=== PATIENT | male | born 1930 | race African-American/Black ===

== ENCOUNTER 2020-03-08 16:48 | Emergency (ER) | payer OTHER ==
[2020-03-08] MEDS ORDERED: ONDANSETRON 4 MG/2 ML VIAL ONE (18:39)
--- NOTE | 2020-03-08 18:41 | RAD REPORT ---
EXAM DESCRIPTION: RAD - Chest Single View - 03/08/2020 6:25 pm CLINICAL HISTORY: epigastric pain Chest pain. COMPARISON: CHEST SINGLE VIEW dated 04/15/2008 FINDINGS: Portable technique limits examination quality. The lungs are grossly clear. The heart is moderately enlarged with a tortuous thoracic aorta. No disp laced fractures. IMPRESSION: No acute intrathoracic process suspected.
[2020-03-08 18:51] LABS: Absolute Lymphocytes (CBC) 0.5 K/uL (0.7-4.9); Basophils % 0.2 % (0-1.3); Hematocrit 37.9 % (39.6-49.0); Lymphocytes % 5.6 % (15.3-44.8); MPV 8.7 fL (7.6-11.3); RBC Red Blood Cell Count 4.46 M/uL (4.33-5.43)
--- NOTE | 2020-03-08 19:21 | RAD REPORT ---
EXAM DESCRIPTION: CTAbdomen Pelvis W Contrast - 03/08/2020 6:46 pm CLINICAL HISTORY: Abdominal pain. Abd pain;Nausea / vomiting COMPARISON: No comparisons TECHNIQUE: Biphasic CT imaging of the abdomen and pelvis was performed with 100 ml non-ionic IV cont rast. All CT scans are performed using dose optimization technique as appropriate and may include automated exposure control or mA/KV adjustment according to patient size. FINDINGS: Linear subsegmental atelectasis is present in right lung base. Numerous liver cysts are present. No aggressive liver lesion or biliary dilatation. Nodularity is see n in both adrenal glands, likely benign. Bilateral renal cysts are present with small stones in the c alices of both kidneys, the largest measuring 5 mm in the superior pole right kidney. The pancreas is unremarkable. No bowel obstruction, free air, free fluid or abscess. The appendix is normal. No evidence of signi ficant lymphadenopathy. Significant lumbosacral degenerative changes. Bilateral total hip arthroplasties. IMPRESSION: No acute intra-abdominal or pelvic finding. Nonobstructing bilateral nephrolithiasis.
[2020-03-08 19:26] LABS: ALT/SGPT 28 U/L (12-78); Alkaline Phosphatase 91 U/L (45-117); BUN Blood Urea Nitrogen 17 mg/dL (7-18); Bicarbonate 26 mmol/L (21-32); Bilirubin Direct < 0.1 mg/dL (0-0.2); Bilirubin Total 0.4 mg/dL (0.2-1.0); Glucose Level 117 mg/dL (74-106); Lipase 105 U/L (73-393); Protein, Total 9.9 g/dL (6.4-8.2); Sodium Level 138 mmol/L (136-145); Troponin I < 0.02 ng/mL (0.0-0.045)
[2020-03-08 19:27] LABS: AST/SGOT 26 U/L (15-37); Magnesium 2.3 mg/dL (1.8-2.4); Potassium 4.4 mmol/L (3.5-5.1)
[2020-03-08] MEDS ORDERED: DICYCLOMINE HCL 10 MG CAP ONE (20:28)
--- NOTE | 2020-03-08 20:37 | EDPHYS ---
Physician Documentation [facility] Name: Milagros Bolanos Jr Age: 89 yrs Sex: Male : 1930 Arrival Date: 03/08/2020 Time: 16:52 Bed 16 Private MD: ED Physician Cosme Chamorro HPI: 03/08 18:05 This 89 yrs old Black Male presents to ER via Wheelchair with complaints of Abdominal cp Pain, Vomiting, Weakness. 18:05 The patient presents with abdominal pain in the epigastric area, in the upper abdomen. cp Onset: The symptoms/episode began/occurred this morning. Associated signs and symptoms: Pertinent positives: nausea and vomiting, Pertinent negatives: blood in stools, chest pain, vomiting blood. The symptoms are described as constant. Historical: - Allergies: 16:56 No Known Allergies; jd3 - PMHx: 16:56 Hypertension; UTI; High Cholesterol; jd3 - PSHx: 16:56 SHYAM hip; jd3 - Immunization history:: Adult Immunizations unknown. - Social history:: Smoking status: Patient/guardian denies using tobacco, the patient reports quitting approximately 2 years ago. ROS: 18:10 Constitutional: Negative for body aches, chills, fever, poor PO intake. cp 18:10 Eyes: Negative for injury, pain, redness, and discharge. cp 18:10 ENT: Negative for ear pain, sore throat, difficulty swallowing, difficulty handling secretions. 18:10 Cardiovascular: Negative for chest pain, edema, palpitations. 18:10 Respiratory: Negative for cough, shortness of breath, wheezing. 18:10 Abdomen/GI: Positive for abdominal pain, nausea and vomiting, Negative for diarrhea, constipation, hematemesis, black/tarry stool, rectal bleeding. 18:10 Back: Negative for radiated pain. 18:10 : Negative for urinary symptoms, testicular pain 18:10 Neuro: Negative for altered mental status, headache. 18:10 All other systems are negative. Exam: 18:15 Constitutional: The patient appears in no acute distress, alert, awake, cp non-diaphoretic, non-toxic, well developed, well nourished. 18:15 Head/Face: Normocephalic, atraumatic. cp 18:15 Eyes: Periorbital structures: appear normal, Conjunctiva: normal, no exudate, no injection, Sclera: no appreciated abnormality, Lids and lashes: appear normal, bilaterally. 18:15 ENT: External ear(s): are unremarkable, Nose: is normal, Mouth: Lips: moist, Oral mucosa: pink and intact, moist, Posterior pharynx: is normal, airway is patent, no erythema, no exudate. 18:15 Chest/axilla: Inspection: normal, Palpation: is normal, no crepitus, no tenderness. 18:15 Cardiovascular: Rate: normal, Rhythm: regular, Edema: is not appreciated, JVD: is not appreciated. 18:15 Respiratory: the patient does not display signs of respiratory distress, Respirations: normal, no use of accessory muscles, no retractions, labored breathing, is not present, Breath sounds: are clear throughout, no decreased breath sounds. 18:15 Abdomen/GI: Inspection: abdomen appears normal, Bowel sounds: active, all quadrants, Palpation: soft, in all quadrants, moderate abdominal tenderness, in the right upper quadrant and left upper quadrant, rebound tenderness, is not appreciated, voluntary guarding, is elicited in the right upper quadrant and left upper quadrant, involuntary guarding, is not appreciated. 18:15 Back: pain, is absent, ROM is normal. 18:15 Neuro: Orientation: to person, place \T\ time. Mentation: is normal, Motor: moves all fours, strength is normal. 19:05 ECG was reviewed by the Attending Physician. cp Vital Signs: 16:56 BP 153 / 87; Pulse 88; Resp 17 S; Temp 98.2(O); Pulse Ox 99% on R/A; Weight 72.57 kg jd3 (R); Height 5 ft. 8 in. (172.72 cm) (R); Pain 8/10; 18:10 BP 166 / 91; Pulse 92; Resp 16 S; Pulse Ox 98% on R/A; ca1 19:00 BP 149 / 89; Pulse 86; Resp 17 S; Pulse Ox 98% on R/A; ca1 20:09 BP 155 / 91; Pulse 87; Resp 18 S; Pulse Ox 97% on R/A; ca1 20:57 BP 158 / 91; Pulse 91; Resp 16 S; Pulse Ox 98% on R/A; ca1 16:56 Body Mass Index 24.33 (72.57 kg, 172.72 cm) jd3 MDM: 18:05 Patient medically screened. cp 18:06 Patient medically screened. izzy 20:35 Data reviewed: vital signs, nurses notes, lab test result(s), radiologic studies, CT cp scan, plain films. 20:35 Test interpretation: by ED physician or midlevel provider: ECG. Counseling: I had a cp detailed discussion with the patient and/or guardian regarding: the historical points, exam findings, and any diagnostic results supporting the discharge/admit diagnosis, lab results, radiology results, to return to the emergency department if symptoms worsen or persist or if there are any questions or concerns that arise at home. Response to treatment: the patient's symptoms have markedly improved after treatment. Special discussion: Based on the patient's Hx, exam, and Dx evaluation, there is no indication for emergent surgery or inpatient Tx. It is understood by the patient/guardian that if the Sx's persist or worsen they need to return immediately for re-evaluation. ED course: VSS. Pain and nausea improved. Vomiting resolved and patient tolerating po fluids. Will discharge to home for continued monitoring. 03/08 18:08 Order name: Basic Metabolic Panel; Complete Time: 19:59 03/08 20:05 Interpretation: Normal except: GLUC 117; GFR 64; CA 10.2. 03/08 18:08 Order name: CBC with Diff; Complete Time: 13:18 03/08 19:24 Interpretation: Normal except: HGB 12.3; HCT 37.9; RDW 16.1; JAYLENE% 91.1; LYM% 5.6; MN% cp 3.1; LYMA 0.5. 03/08 18:08 Order name: Hepatic Function; Complete Time: 19:59 03/08 20:05 Interpretation: Normal except: TP 9.9; GLOB 5.9; A/G 0.7. 03/08 18:08 Order name: Lipase; Complete Time: 19:59 03/08 18:08 Order name: Magnesium; Complete Time: 19:59 03/08 18:08 Order name: Lactate; Complete Time: 19:59 03/08 20:06 Interpretation: Within normal limits. 03/08 18:08 Order name: Troponin I; Complete Time: 19:59 03/08 20:06 Interpretation: TROP < 0.02; Reviewed. 03/08 18:08 Order name: PT-INR; Complete Time: 19:59 cp 03/08 18:08 Order name: CT Abd/Pelvis - IV Contrast Only; Complete Time: 19:23 cp 03/08 19:24 Interpretation: Report reviewed. 03/08 18:08 Order name: XRAY Chest (1 view); Complete Time: 19:23 03/08 19:24 Interpretation: Report reviewed. 03/08 19:02 Order name: CBC Smear Scan; Complete Time: 13:18 EDMS 03/08 19:23 Order name: COVID-19 cp 03/08 19:23 Order name: CORONAVIRUS; Complete Time: 13:18 EDMS 03/08 20:57 Order name: Urine Dipstick--Ancillary (enter results); Complete Time: 13:18 tt3 03/08 18:08 Order name: IV Saline Lock; Complete Time: 18:38 cp 03/08 18:08 Order name: Labs collected and sent; Complete Time: 18:38 03/08 18:08 Order name: EKG; Complete Time: 18:09 cp 03/08 18:08 Order name: EKG - Nurse/Tech; Complete Time: 19:03 cp 03/08 20:06 Order name: PO challenge; Complete Time: 20:17 cp 03/08 20:52 Order name: Urine Dipstick-Ancillary (obtain specimen); Complete Time: 20:57 cp EC:05 Rate is 88 beats/min. Rhythm is regular. ME interval is prolonged at 278 msec. QRS cp interval is normal. QT interval is normal. Interpreted by me. Reviewed by me. Administered Medications: 19:02 Drug: Zofran (Ondansetron) 4 mg Route: IVP; Site: left antecubital; ca1 20:00 Follow up: Response: No adverse reaction; Nausea is decreased ca1 20:17 Drug: Bentyl 20 mg Route: PO; ca1 20:57 Follow up: Response: No adverse reaction; Pain is decreased ca1 21:00 Follow up: Response: No adverse reaction; Pain is decreased ca1 Disposition: 03/09 08:18 Co-signature as Attending Physician, Cosme Chamorro MD I agree with the assessment and izzy plan of care. Disposition: 03/08/20 20:36 Discharged to Home. Impression: Nausea and vomiting. - Condition is Stable. - Discharge Instructions: Abdominal Pain, Adult, Nausea and Vomiting, Adult. - Prescriptions for Bentyl 20 mg Oral Tablet - take 1 tablet by ORAL route every 6 hours As needed; 20 tablet. Zofran 4 mg Oral Tablet - take 1 tablet by ORAL route every 12 hours As needed; 20 tablet. - Medication Reconciliation Form, Thank You Letter, Antibiotic Education, Prescription Opioid Use form. - Follow up: Private Physician; When: 2 - 3 days; Reason: Recheck today's complaints. - Problem is new. - Symptoms have improved. Signatures: Dispatcher [employer] EDMO Cosme Chamorro MD MD cha Attema, Lee, SHEETFED PRESS OPERATOR-C SHEETFED PRESS OPERATOR-Cla1 Cosme Kellogg, PA PA Munir Cabello RN RN jd3 Ariana Zapata RN RN ca1 Corrections: (The following items were deleted from the chart) 03/08 20:05 20:04 Normal except: GLUC 117; GFR 64. cp cp 20:58 20:36 03/08/2020 20:36 Discharged to Home. Impression: Nausea and vomiting. Condition ca1 is Stable. Forms are Medication Reconciliation Form, Thank You Letter, Antibiotic Education, Prescription Opioid Use. Follow up: Private Physician; When: 2 - 3 days; Reason: Recheck today's complaints. Problem is new. Symptoms have improved. cp
--- NOTE | 2020-03-08 20:37 | ER ---
Nurse's Notes [facility] Name: Milagros Bolanos Jr Age: 89 yrs Sex: Male : 1930 Arrival Date: 03/08/2020 Time: 16:52 Bed 16 Private MD: Diagnosis: Nausea and vomiting Presentation: 03/08 16:54 Chief complaint: Spouse and/or significant other states: "He has been throwing up jd3 consistently for 2 hours now.". Coronavirus screen: At this time, the client does not indicate any symptoms associated with coronavirus-19. Ebola Screen: Patient negative for fever greater than or equal to 101.5 degrees Fahrenheit, and additional compatible Ebola Virus Disease symptoms. Initial Sepsis Screen: Does the patient meet any 2 criteria? No. Patient's initial sepsis screen is negative. Does the patient have a suspected source of infection? No. Patient's initial sepsis screen is negative. Risk Assessment: Do you want to hurt yourself or someone else? Patient reports no desire to harm self or others. Onset of symptoms was March 08, 2020. 16:54 Method Of Arrival: Wheelchair jd3 16:54 Acuity: JOI 3 jd3 Historical: - Allergies: 16:56 No Known Allergies; jd3 - PMHx: 16:56 Hypertension; UTI; High Cholesterol; jd3 - PSHx: 16:56 SHYAM hip; jd3 - Immunization history:: Adult Immunizations unknown. - Social history:: Smoking status: Patient/guardian denies using tobacco, the patient reports quitting approximately 2 years ago. Screenin:05 Abuse screen: Denies threats or abuse. Denies injuries from another. Nutritional ca1 screening: No deficits noted. Tuberculosis screening: No symptoms or risk factors identified. Fall Risk IV access (20 points). Assessment: 18:05 General: Appears in no apparent distress. comfortable, Behavior is calm, cooperative, ca1 appropriate for age. Pain: Complains of pain in epigastric area Pain currently is 7 out of 10 on a pain scale. Pain began 1 day ago. Neuro: Level of Consciousness is awake, alert, obeys commands, Oriented to person, place, time, situation. Cardiovascular: Heart tones S1 S2 present Capillary refill < 3 seconds Patient's skin is warm and dry. Respiratory: Airway is patent Respiratory effort is even, unlabored, Respiratory pattern is regular, symmetrical, Breath sounds are clear bilaterally. GI: Abdomen is flat, non-distended, Bowel sounds present X 4 quads. Abd is soft X 4 quads Abdomen is tender to palpation in epigastric area Reports nausea, vomiting, since last night. : No signs and/or symptoms were reported regarding the genitourinary system. EENT: No signs and/or symptoms were reported regarding the EENT system. Derm: Skin is intact, is healthy with good turgor, Skin is pink, warm \\T\\ dry. Musculoskeletal: Circulation, motion, and sensation intact. Capillary refill < 3 seconds. 19:12 Reassessment: Patient appears in no apparent distress at this time. Patient and/or ca1 family updated on plan of care and expected duration. Pain level reassessed. Patient is alert, oriented x 3, equal unlabored respirations, skin warm/dry/pink. 20:04 Reassessment: Patient appears in no apparent distress at this time. Patient and/or ca1 family updated on plan of care and expected duration. Pain level reassessed. Patient is alert, oriented x 3, equal unlabored respirations, skin warm/dry/pink. 20:57 Reassessment: Patient appears in no apparent distress at this time. Patient is alert, ca1 oriented x 3, equal unlabored respirations, skin warm/dry/pink. Vital Signs: 16:56 BP 153 / 87; Pulse 88; Resp 17 S; Temp 98.2(O); Pulse Ox 99% on R/A; Weight 72.57 kg jd3 (R); Height 5 ft. 8 in. (172.72 cm) (R); Pain 8/10; 18:10 BP 166 / 91; Pulse 92; Resp 16 S; Pulse Ox 98% on R/A; ca1 19:00 BP 149 / 89; Pulse 86; Resp 17 S; Pulse Ox 98% on R/A; ca1 20:09 BP 155 / 91; Pulse 87; Resp 18 S; Pulse Ox 97% on R/A; ca1 20:57 BP 158 / 91; Pulse 91; Resp 16 S; Pulse Ox 98% on R/A; ca1 16:56 Body Mass Index 24.33 (72.57 kg, 172.72 cm) jd3 ED Course: 16:52 Patient arrived in ED. as 16:55 Triage completed. jd3 16:58 Arm band placed on. jd3 18:00 Cosme Kellogg PA is PHCP. cp 18:00 Cosme Chamorro MD is Attending Physician. cp 18:04 Ariana Zapata RN is Primary Nurse. ca1 18:05 Patient has correct armband on for positive identification. Placed in gown. Bed in low ca1 position. Call light in reach. Side rails up X2. Pulse ox on. NIBP on. Warm blanket given. 18:26 XRAY Chest (1 view) In Process Unspecified. EDMS 18:38 Inserted saline lock: 20 gauge in left antecubital area, using aseptic technique. Blood dh4 collected. 18:48 CT Abd/Pelvis - IV Contrast Only In Process Unspecified. EDMS 19:27 Triston Matthews MD is Attending Physician. cp 19:28 Cosme Chamorro MD is Attending Physician. cp 20:58 No provider procedures requiring assistance completed. IV discontinued, intact, ca1 bleeding controlled, No redness/swelling at site. Pressure dressing applied. Administered Medications: 19:02 Drug: Zofran (Ondansetron) 4 mg Route: IVP; Site: left antecubital; ca1 20:00 Follow up: Response: No adverse reaction; Nausea is decreased ca1 20:17 Drug: Bentyl 20 mg Route: PO; ca1 20:57 Follow up: Response: No adverse reaction; Pain is decreased ca1 21:00 Follow up: Response: No adverse reaction; Pain is decreased ca1 Outcome: 20:36 Discharge ordered by MD. cp 20:58 Discharged to home ambulatory, with family. ca1 20:58 Condition: stable 20:58 Discharge instructions given to patient, family, Instructed on discharge instructions, follow up and referral plans. medication usage, Demonstrated understanding of instructions, follow-up care, medications, Prescriptions given X 2. 20:58 Patient left the ED. ca1 Addendum: 03/11/2020 08:31 Addendum: COVID-19 Result: Negative result given to RN to notify pt. Notified pt of s s negative COVID 19 swab results. Pt advised that even with a negative test result they should remain in isolation until symptom free for 3 days without medication. Pt also advised to return to the ED for worsening symptoms. Signatures: Dispatcher [employer] Celina Garza Shelby, RN RN ss Cosme Kellogg PA PA cp Davies, Jonathon, RN RN jd3 AcAriana pham RN RN ca1 Stefano Rodriguez 4 Corrections: (The following items were deleted from the chart) 03/08 19:11 18:05 GI: Abdomen is flat, non-distended, Bowel sounds present X 4 quads. Abd is soft ca1 and non tender X 4 quads. ca1
[2020-03-08 20:54] LABS: Blood Morphology Comment NOT SEEN (NOT SEEN); Platelet Estimate ADEQ; White Blood Cell Scan OK (OK)
[2020-03-08 21:08] LABS: Urine Blood TRACE (NEG); Urine Glucose NEGATIVE (NEG); Urine Protein NEGATIVE (NEG); Urine Specific Gravity 1.015 (1.005-1.030)
[2020-03-09 00:33] VITALS: TEMP 98.2
[2020-03-09 00:44] VITALS: BP 158/91; O2SAT 98
--- NOTE | 2020-03-10 07:44 | EKG ---
Test Date: 2020-03-08 Test Time: 18:58:27 Nursing Informatics Analyst: JONG MEASUREMENT RESULTS: Intervals: Rate: 91 CA: 272 QRSD: 90 QT: 338 QTc: 415 [place]: P: 85 CA: 272 QRS: 53 T: 145 INTERPRETIVE STATEMENTS: Sinus rhythm with 1st degree AV block with occasional premature ventricular complexes and fusion complexes ST & T wave abnormality, consider lateral ischemia Abnormal ECG Compared to ECG 04/15/2008 09:21:08 Fusion complex(es) now present Ventricular premature complex(es) now present First degree AV block now present ST (T wave) deviation now present T-wave abnormality no longer present Possible ischemia still present Electronically Signed On 03-10-20 07:40:59 CV/CVN CV TSC SYSTEM OPERATOR by Alexi Kelsey
== END 2020-03-08 20:58 | disposition home or self-care (01) ==
LOC: ER 16:48
DX: R11.2 Nausea with vomiting, unspecified (principal); Z20.828 Contact with and (suspected) exposure to other viral communicable diseases
CPT/HCPCS: 93005 ×2; 85025; 80048; 36415; 83735; 85610; 82565; 80076; 83605; 81003; 84484; 83690; 74177; 71045; 96374; 99284; U0002; Q9967; J2405